=== PATIENT | female | born 1970 | race Caucasian/White ===

== ENCOUNTER 2016-09-14 01:01 | Emergency (ER) | payer OTHER ==
--- NOTE | 2016-09-23 23:29 | ER ---
ADMIT: 09/14/2016 RM/LOC: ER [facility] MR#: [id number] [address] [facility] [address] [place] [id number] DENNY NARAYANCOMPA [place] [address] [place] [address] Emergency Room Report SEX: F AGE: 46 : 1970 DATE: 09/14/2016 ADDENDUM: See T-sheet for complete H and P. A 46-year-old female with history of Parkinson's, comes in with inability to pee. She does have a history of having some problems with this before when she has had issues with her Parkinson's medications. She actually had an episode several weeks ago when she was getting evaluated for deep brain stimulator. When her medications were being changed, she had to be straight cathed at that time. She also just a couple of weeks ago shortly after that episode had surgery for rectocele. However, this week, she was diagnosed with urinary tract infection 4 days ago, was put on Bactrim and apparently the culture showed that was not working, so she was switched to amoxicillin today. Her urinary retention just began a few hours ago. Bladder scan showed approximately 900 mL of urine. We did place a Orantes catheter and she had a little over a 1000 mL out since she has been here. At this point, I believe this is most likely related to medications with her Parkinson's at this time. I believe she would benefit from having the Orantes stay in place until we were able to get her evaluated by either her physician that manages her Parkinson's or the urologist. She has seen Urology before for her Parkinson's and urinary retention. We did check a urinalysis here and it shows no signs of infection. She is currently on amoxicillin, we will have her stay on that. She is discharged home with her Orantes catheter to follow up with her Parkinson's physician in the next several days. DIAGNOSIS: Urinary retention. Ozzy Dial MD/ arelis JOB #: [id number] CC: Ozzy Dial MD, Attending Physician Wilfred Bo MD, Family Physician
== END 2016-09-14 02:30 | disposition home or self-care (01) ==
LOC: ER 01:01
PROC: BT20ZZZ Computerized Tomography (CT Scan) of Bladder (ICD-10-PCS; principal; 2016-09-14)
PROC: 0T9B70Z Drainage of Bladder with Drainage Device, Via Natural or Artificial Opening (ICD-10-PCS; principal; 2016-09-14)
DX: R33.9 Retention of urine, unspecified (principal); G20 Parkinson's disease; Z98.890 Other specified postprocedural states; Z88.8 Allergy status to other drugs, medicaments and biological substances; Z79.899 Other long term (current) drug therapy

== ENCOUNTER 2016-11-03 12:05 | Emergency (ER) | payer OTHER ==
--- NOTE | 2016-11-04 09:21 | ER ---
ADMIT: 11/03/2016 RM/LOC: ER [facility] MR#: [id number] [address] [facility] [address] [place] [id number] DEANNA NARAYAN [address] [place] [address] Emergency Room Report SEX: F AGE: 46 : 1970 DATE: 11/03/2016 TIME: 1205 hours. Please refer to my T-sheet for complete H and P. HISTORY OF PRESENT ILLNESS: Briefly, the patient 46-year-old, who has a known history of Parkinson's. She has been having leg cramps for a long time. She is planning on getting a stimulator placed in the near future. She has recently been on Cipro for UTI about 4 to 5 days. She thinks, she is having side effects and Cipro is making her legs hurt worse. She comes in for evaluation. PHYSICAL EXAMINATION: VITAL SIGNS: Stable. HEENT: Grossly normal. LEGS: Essentially normal. NEURO: She is at her baseline except for increased ache in her legs. EMERGENCY DEPARTMENT COURSE: We sent a urine which we were going to send it for culture. It was a clean catch and she is on her period. She did not want a catheterization, so there is quite a bit of blood in it. However, we will wait for the culture before we decide anything. After discussion with her, she would like to stop the Cipro and follow up. ASSESSMENT: 1. Med reaction to Cipro. 2. Leg cramps that are worse than usual. I did give her Amity 5 mg half a tablet because that is all she wanted. 3. Parkinson's. PLAN: Keep appointment with Selina. Return if worse. Follow up with Fruehling as needed. Stop Cipro. Ken Liriano MD/ arelis JOB #: [id number] CC: Ken Liriano MD, Attending Physician
== END 2016-11-03 14:09 | disposition home or self-care (01) ==
LOC: ER 12:05
DX: R25.2 Cramp and spasm (principal); T36.8X5A Adverse effect of other systemic antibiotics, initial encounter; G20 Parkinson's disease; K21.9 Gastro-esophageal reflux disease without esophagitis